=== PATIENT | female | born 1980 | race Hispanic/Latino ===

== ENCOUNTER 2022-03-28 16:08 | Emergency (ER) | payer OTHER, SELFPAY ==
[2022-03-28 16:20] VITALS: BP 146/82; PULSE 96; RESP 16; TEMP 36.7; O2SAT 100
--- NOTE | 2022-03-28 16:33 | ED.URI ---
HPI - URI/Sore Throat General Chief Complaint: Upper Respiratory Infection Stated Complaint: sorethroat Time Seen by Provider: 03/28/22 16:33 Source: patient Mode of arrival: ambulatory Limitations: no limitations History of Present Illness HPI Narrative: Katerina Trejo is a 42 yo female with a PMH of Sjorgen's syndrome,and who is in the who comes with complaints of a dry throat x2 days. No fever-his eyes are watering but feels really dry in her throat and nose; not feeling well Related Data Home Medications Medication Instructions Recorded Confirmed cholecalciferol (vitamin D3) 1,000 unit PO DAILY 03/28/22 03/28/22 [Vitamin D3] hydroxychloroquine [Plaquenil] 200 mg PO DAILY 03/28/22 03/28/22 Allergies Allergy/AdvReac Type Severity Reaction Status Date / Time No Known Allergies Allergy Verified 03/28/22 16:29 Review of Systems Review of Systems: CONSTITUTIONAL: Denies fever, chills, sweats. EYES: Denies visual changes, redness, discharge. ENT: Denies rhinorrhea, congestion, sore throat, otalgia. CARDIOVASCULAR: Denies chest pain, palpitations, edema. RESPIRATORY: Denies dyspnea, wheezing, cough GASTROINTESTINAL: Denies abdominal pain, nausea, vomiting, diarrhea. GENITOURINARY: Denies dysuria, hematuria, abnormal discharge SKIN: Denies rash or itching. NEUROLOGIC: Denies numbness, or focal weakness. PSYCHIATRIC: Denies anxiety or depression. Dry eyes and mouth more extreme than usual and not feeling well PMFSH Past Medical History Medical History Sjogrens syndrome Social History Social History (Updated 03/28/22 @ 16:50 by Domenica Hernandez CNP) Smoking status: Never smoker Alcohol intake: never Comments At time of signature, I agree with nursing past medical, surgical, social and family history. There is no relevant family history pertinent to the presenting complaint. Exam Narrative: GENERAL: This is a well-nourished, well-developed patient, in mild distress. HEAD: normocephalic, atraumatic. EYES:. Sclera clear/white. Vision is grossly intact. Eyes appear watery EARS: External ears normal, auditory canals clear and without drainage, TMs normal without perforation. Hearing grossly intact. NOSE: External nose normal without nasal discharge, nares without redness, no rhinorrhea. THROAT: Mucous membranes moist, posterior pharynx mild erythema NECK: Neck supple, non-tender CARDIOVASCULAR: Regular rate and rhythm without murmurs, gallops, or rubs. RESPIRATORY: Clear to auscultation. Breath sounds equal bilaterally. No wheezes, rales, or rhonchi. GASTROINTESTINAL: Abdomen soft, non-tender, SKIN: warm, intact with no suspicious lesions or rash, good texture and turgor. NEURO: awake, alert, and oriented to person, place and time. There were no obvious focal neurologic abnormalities. Steady gait EXTREMITIES: Normal range of motion. BACK: Nontender without deformity Course Course Emergency Course: Patient comes with complaints of runny nose and eyes with an context of Sojourn's syndrome strep test is negative COVID test s negative Patient currently takes cepacol, is taking zyrtec,has only been on Plaquinil for 6 months; [facility] or with family development specialist Level of Care: Express Care Visit Vital Signs Vital signs: Vital Signs Temperature 98.1 F 03/28/22 16:20 Pulse Rate 96 03/28/22 16:20 Respiratory Rate 16 03/28/22 16:20 Blood Pressure 146/82 H 03/28/22 16:20 Pulse Oximetry 100 03/28/22 16:20 Temperature 98.1 F 03/28/22 16:20 Pulse Rate 96 03/28/22 16:20 Respiratory Rate 16 03/28/22 16:20 Blood Pressure 146/82 H 03/28/22 16:20 Pulse Oximetry 100 03/28/22 16:20 MDM - URI/Sore Throat Lab Data Labs: Strep Screen Presumptive Negative *(Reference Range: Negative)* Discharge Plan Discharge Clinical
== END 2022-03-28 17:04 | disposition home or self-care (01) ==
PROVIDERS: Emergency Provider Nurse Practitioner
DX: J30.2 Other seasonal allergic rhinitis (principal); Z20.822 Contact with and (suspected) exposure to COVID-19
CPT/HCPCS: 87081; 87426; 87880; 99203; C9803; G0463

== ENCOUNTER 2022-04-11 14:52 | Emergency (ER) | payer OTHER, SELFPAY ==
--- NOTE | ~2022-04-11 | XR_ITS ---
XR knee LT min 4V 04/11/2022 15:44 INDICATION: Left knee pain PROCEDURE: 5 views left knee COMPARISON: No prior studies for comparison. FINDINGS: Fracture, dislocation or subluxation is not identified. No significant joint effusion. The soft tissues appear within normal limits. No foreign bodies are identified. IMPRESSION: 1: NO ACUTE BONE OR JOINT ABNORMALITY IDENTIFIED. Reviewed, dictated and finalized at location A.
[2022-04-11 15:11] VITALS: BP 124/69; PULSE 78; RESP 18; TEMP 36.2; O2SAT 99
--- NOTE | 2022-04-11 15:19 | ED.LOWEXIN ---
HPI - Extremity Injury (Lower) General Chief Complaint: Extremity Injury, Lower Stated Complaint: lt knee pain Time Seen by Provider: 04/11/22 15:19 Source: patient Mode of arrival: ambulatory Limitations: no limitations History of Present Illness HPI Narrative: Ms. Trejo is a 42-year-old female patient presenting to the clinic today with complaints of left knee pain x1 month She reports she has been doing a lot of running and doing squats for [employer]. She reports that she has had patellofemoral syndrome in the past however she feels as though her knee is making some popping/crunching noises. Has pain to the anterior knee. Denies any known injury. Related Data Home Medications Medication Instructions Recorded Confirmed cholecalciferol (vitamin D3) 25 1,000 unit PO DAILY 03/28/22 04/11/22 mcg (1,000 unit) tablet (Vitamin D3) hydroxychloroquine 200 mg tablet 200 mg PO DAILY 03/28/22 04/11/22 (Plaquenil) cetirizine 10 mg tablet (Zyrtec) 10 mg PO DAILY 04/11/22 04/11/22 Allergies Allergy/AdvReac Type Severity Reaction Status Date / Time No Known Allergies Allergy Verified 04/11/22 15:30 Review of Systems Review of Systems: Pertinent positives per HPI. Patient denies any fever, chills, rash, headache, visual changes, dizziness, cough, runny nose, sore throat, shortness of breath, chest pain, palpitations, nausea, vomiting, diarrhea, constipation, abdominal pain, or any urinary issues. PMFSH Past Medical History Medical History Sjogrens syndrome Social History Social History Smoking status: Never smoker Alcohol intake: never Exam Narrative: General: Well-developed, well nourished, in no apparent distress Head: Normocephalic, atraumatic. Cardio: Regular rate and rhythm, s1 and s2 normal, no murmur appreciated. Resp: Clear to auscultation bilaterally, no rhonchi, rales, wheezing or rubs. Musculoskeletal: No deformity, tender to palpation over the superior knee and the patella, mild crepitus felt with flexion and extension of the left knee, grossly normal range of motion, pain most with flexion of the left knee, tenderness noted with valgus and varus testing, negative anterior and posterior drawer test, muscle strength strong and equal, peripheral pulse strong, no edema, no cyanosis, normal gait and station Course Course Emergency Course: This electronic medical record was dictated using voice recognition software and may contain some grammatical errors. Level of Care: Express Care Visit Vital Signs Vital signs: Vital Signs Temperature 36.2 C L 04/11/22 15:11 Pulse Rate 78 04/11/22 15:11 Respiratory Rate 18 04/11/22 15:11 Blood Pressure 124/69 04/11/22 15:11 Pulse Oximetry 99 04/11/22 15:11 Oxygen Delivery Room Air 04/11/22 15:11 Temperature 36.2 C L 04/11/22 15:11 Pulse Rate 78 04/11/22 15:11 Respiratory Rate 18 04/11/22 15:11 Blood Pressure 124/69 04/11/22 15:11 Pulse Oximetry 99 04/11/22 15:11 Oxygen Delivery Room Air 04/11/22 15:11 Vital signs reviewed MDM - Extremity Injury (Lower) MDM Narrative Medical decision making narrative: At the time of visit patient is resting comfortably on the exam table. X-ray was performed and was negative for any fracture or malalignment of the left knee. 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 Imaging Data Attestation: I personally reviewed and interpreted this imaging study as follows: My impression: Left knee x-ray negative for any fracture or malalignment Radiologist's impression: [address] [id number] XRay Report Signed Patient: Katerina Trejo : 1980 MR#:
== END 2022-04-11 15:52 | disposition home or self-care (01) ==
PROVIDERS: Emergency Provider Nurse Practitioner Family
DX: M22.2X2 Patellofemoral disorders, left knee (principal); M35.00 Sjogren syndrome, unspecified
CPT/HCPCS: 73564; 99213; G0463

== ENCOUNTER 2023-08-04 17:54 | Emergency (ER) | payer OTHER, SELFPAY ==
[2023-08-04 18:07] VITALS: BP 130/82; PULSE 78; RESP 16; TEMP 36.6; O2SAT 100
--- NOTE | 2023-08-04 18:09 | ED.URI ---
HPI - URI/Sore Throat General Chief Complaint: Upper Respiratory Infection Stated Complaint: Sore Throat;Headache Time Seen by Provider: 08/04/23 18:09 Source: patient Mode of arrival: ambulatory Limitations: no limitations History of Present Illness HPI Narrative: 43-year-old female presents with complaint of sore throat swollen lymph nodes to neck for 3 days. Reports fatigue. Reports continued cough from COVID. States she had COVID 3 weeks ago. Reports that she has a lot of postnasal drainage that she cannot clear. Taking Flonase. Patient reports history of Sjogren's and normally has difficulty with secretions. States she takes a Zyrtec or Claritin it will dry her out too much. All systems reviewed and negative except as noted above. Related Data Home Medications Medication Instructions Recorded Confirmed cholecalciferol (vitamin D3) 25 1,000 unit PO DAILY 03/28/22 08/04/23 mcg (1,000 unit) tablet (Vitamin D3) hydroxychloroquine 200 mg tablet 200 mg PO DAILY 03/28/22 08/04/23 (Plaquenil) Allergies Allergy/AdvReac Type Severity Reaction Status Date / Time No Known Allergies Allergy Verified 08/04/23 18:05 Review of Systems Review of Systems: CONSTITUTIONAL: Denies fever, chills, or sweats. EYES: Denies visual changes, redness, or discharge. ENT: Denies rhinorrhea, congestion. Reports sore throat, postnasal drainage. Denies otalgia. CARDIOVASCULAR: Denies chest pain, palpitations, or edema. RESPIRATORY: Reports cough. Denies dyspnea. GASTROINTESTINAL: Denies abdominal pain, nausea, vomiting, or diarrhea. GENITOURINARY: Denies dysuria or hematuria. SKIN: Denies rash or itching. MUSCULOSKELETAL: Denies back pain, joint pain, or myalgia. NEUROLOGIC: Denies headache, numbness, or weakness. PSYCHIATRIC: Denies anxiety or depression. All other systems reviewed are negative, except as documented in HPI. [facility] Past Medical History Medical History Sjogrens syndrome Social History Social History Smoking status: Never smoker Alcohol intake: never Comments At time of signature, agree with nursing past medical, surgical, social and family history. There is no relevant family history pertinent to the presenting complaint. Exam Narrative: GENERAL: This is a well-nourished, well-developed patient, in no apparent distress. HEAD: normocephalic, atraumatic. EYES: PERRL. Sclera clear/white. Vision is grossly intact. EARS: External ears normal, auditory canals clear and without drainage, TMs normal without perforation. Hearing grossly intact. NOSE: External nose normal with no obvious nasal discharge, nares without redness, no rhinorrhea. THROAT: Mucous membranes moist, erythema to posterior pharynx. No swelling or exudates noted. NECK: Neck supple, tender with enlarged anterior cervical lymphadenopathy. No masses or thyromegaly. CARDIOVASCULAR: Regular rate and rhythm without murmurs, gallops, or rubs. RESPIRATORY: Clear to auscultation. Breath sounds equal bilaterally. No wheezes, rales, or rhonchi. SKIN: warm, Dry, intact with no suspicious lesions or rash, good texture and turgor. NEURO: awake, alert, and oriented to person, place and time. There were no obvious focal neurologic abnormalities. EXTREMITIES: No joint tenderness, effusion, or edema noted. Course Course Level of Care: Express Care Visit Vital Signs Vital signs: Vital Signs Temperature 36.6 C 08/04/23 18:07 Pulse Rate 78 08/04/23 18:07 Respiratory Rate 16 08/04/23 18:07 Blood Pressure 130/82 08/04/23 18:07 Pulse Oximetry 100 08/04/23 18:07 Temperature 36.6 C 08/04/23 18:07 Pulse Rate 78 08/04/23 18:07 Respiratory Rate 16 08/04/23 18:07 Blood Pressure 130/82 08/04/23 18:07 Pulse Oximetry 100 08/04/23 18:07 Reviewed MDM - URI/Sore Throat MDM Narrative Medi
== END 2023-08-04 18:20 | disposition home or self-care (01) ==
PROVIDERS: Emergency Provider Nurse Practitioner Family
DX: J02.9 Acute pharyngitis, unspecified (principal); R05.1 Acute cough; M35.00 Sjogren syndrome, unspecified
CPT/HCPCS: 99213; G0463

== ENCOUNTER 2024-11-05 17:18 | Emergency (ER) | payer OTHER, SELFPAY ==
[2024-11-05 17:44] VITALS: BP 137/92; PULSE 112; RESP 16; TEMP 37.3; O2SAT 100
[2024-11-05 18:40] LABS: EDCOVIDSCREEN Positive (Negative)
--- NOTE | 2024-11-05 18:41 | ED_ITS ---
HPI - URI/Sore Throat General Chief Complaint: Upper Respiratory Infection Stated Complaint: Cough/Congestion Time Seen by Provider: 11/05/24 18:36 Source: patient and RN notes reviewed Mode of arrival: ambulatory Limitations: no limitations History of Present Illness HPI Narrative: Patient presents today with a 3 day history of nasal congestion, postnasal drip, cough, chills, headache, body aches, mild shortness of breath. Denies fever. She has tried no [id number] treatment prior to arrival. Patient is on Plaquenil for Sjogren's Related Data Home Medications ?Medication ?Instructions ?Recorded ?Confirmed ?Last Taken ?Type cholecalciferol (vitamin D3) 25 1,000 unit PO DAILY 03/28/22 08/04/23 Unknown History mcg (1,000 unit) tablet (Vitamin D3) hydroxychloroquine 200 mg tablet 200 mg PO DAILY 03/28/22 08/04/23 Unknown History (Plaquenil) Allergies Allergy/AdvReac Type Severity Reaction Status Date / Time No Known Allergies Allergy Verified 11/05/24 17:56 Review of Systems Review of Systems: CONSTITUTIONAL: Denies fever, or sweats.+ chills, body aches EYES: Denies visual changes, redness, or discharge. ENT: Denies rhinorrhea, sore throat, or otalgia.+ congestion, postnasal drip CARDIOVASCULAR: Denies chest pain, palpitations, or edema. RESPIRATORY: + cough, mild shortness of breath GASTROINTESTINAL: Denies abdominal pain, nausea, vomiting, or diarrhea. GENITOURINARY: Denies dysuria or hematuria. SKIN: Denies rash, itching, or wounds. MUSCULOSKELETAL: Denies back pain, joint pain, or myalgia. NEUROLOGIC: Denies numbness, tingling, or weakness.+ headache PSYCH: Denies depression or anxiety. [facility] Past Medical History Medical History Sjogrens syndrome Social History Social History Smoking status: Never smoker Alcohol intake: never Comments At time of signature, I have reviewed and agree with nursing past medical, surgical, social and family history unless otherwise noted. Please see nursing chart for further information. There is no relevant family history pertinent to the presenting complaint Exam Narrative: GENERAL: Mildly ill-appearing, well-nourished, and in no acute distress. HEAD: Normocephalic, atraumatic. EYES: EOMI. No redness or drainage. Conjunctivae normal. ENT: Mucous membranes pink and moist. Nares congested. No rhinorrhea. TMs normal bilaterally. Throat normal. Uvula midline. NECK: Normal AROM. Supple. No lymphadenopathy. CHEST: No respiratory distress. Clear to auscultation. HEART: Regular rate and rhythm. No murmur appreciated. EXTREMITIES: Normal range of motion. No edema. SKIN: Warm, dry, no rash. Capillary refill normal. Normal skin turgor. NEURO: No focal deficits. Alert and oriented x3. Gait steady. PSYCH: Normal affect. No signs of depression or anxiety. Course Course Level of Care: Express Care Visit Vital Signs Vital signs: Vital Signs Temperature 99.2 F 11/05/24 17:44 Pulse Rate 112 H 11/05/24 17:44 Respiratory Rate 16 11/05/24 17:44 Blood Pressure 137/92 H 11/05/24 17:44 Pulse Oximetry 100 11/05/24 17:44 Temperature 99.2 F 11/05/24 17:44 Pulse Rate 112 H 11/05/24 17:44 Respiratory Rate 16 11/05/24 17:44 Blood Pressure 137/92 H 11/05/24 17:44 Pulse Oximetry 100 11/05/24 17:44 Reviewed MDM - URI/Sore Throat MDM Narrative Medical decision making narrative: COVID-19 positive. Prescription for Paxlovid sent to pharmacy. Anticipatory guidance given. ED precautions given. Differential Diagnosis Differential diagnosis: Likely upper respiratory infection, viral infection, influenza and other (COVID) Lab Data Attestation: I reviewed the patient's lab results. Labs: Lab Results 11/05/24 Range/Units 18:38 POC SARS CoV-2 Ag Positive (Negative) Critical Care Time Critical Care Time Critical Care Time: No Discharge Plan Discharge Clinical Impression: COVID-19 Patient Disposition: Home, Self-Care Condition: Stable Instructions: COVID-19 (Coronavirus Disease 2019) (ED) Additional Instructions: You have tested positive for COVID-19. Please take the Paxlovid as prescribed. Take Tylenol or ibuprofen for pain or fever. Take Mucinex to help break up any chest congestion. Follow-up with your PCP in 1 week if symptoms are not improving. As discussed, please go to the ER if symptoms worsen to include new onset fever, shortness of breath, chest pain. Your blood pressure was elevated above 120/80 today at Urgent Care. This puts you above the threshold for follow up. Please schedule a followup visit with your personal physician as soon as possible, for further evaluation and treatment. Even blood pressure exceeding 120/80 may indicate pre-hypertension. Patient Language: Samoan Prescriptions: New Paxlovid 300 mg (150 mg x 2)-100 mg tablets,dose pack See Rx Instructions .ROUTE .COMPLEX Qty: 30 0RF Rx Instructions: take TWO 150 mg tablets of nirmatrelvir with ONE 100 mg tablet of ritonavir twice daily for 5 days No Action hydroxychloroquine [Plaquenil] 200 mg Tablet 200 mg PO DAILY cholecalciferol (vitamin D3) [Vitamin D3] 25 mcg (1,000 unit) tablet 1,000 unit PO DAILY amoxicillin 500 mg tablet 500 mg PO Q12H 10 Days Qty: 20 0RF methylprednisolone [Medrol (Christopher)] 4 mg tablets,dose pack See Rx Instructions PO .COMPLEX Qty: 21 0RF Rx Instructions: orally per package directions Follow-up/Referrals: PHYSICIAN,MANAGER EMERGENCY DEPARTMENT [Primary Care Provider] - Time of Disposition: 18:47
== END 2024-11-05 18:58 | disposition home or self-care (01) ==
PROVIDERS: Emergency Provider Nurse Practitioner
DX: U07.1 COVID-19 (principal); M35.00 Sjogren syndrome, unspecified
CPT/HCPCS: 87426; 99213; G0463

== ENCOUNTER 2025-08-27 07:55 | Outpatient (CLI) | payer OTHER, SELFPAY ==
--- NOTE | ~2025-08-27 | US_ITS ---
ULTRASOUND ABDOMEN LIMITED (RIGHT UPPER QUADRANT) Clinical History: R74.01 - Elevation of levels of liver transaminase levels Comparison: None Technique: Right upper quadrant sonography Findings: Liver: Normal size. Echogenic. No intrahepatic biliary ductal dilatation. Normal hepatopedal flow main portal vein. Common Duct: Normal caliber. 3 mm. Gallbladder: No stones. No wall thickening. No pericholecystic fluid. Pancreas: Unremarkable. IMPRESSION: 1. No acute findings. 2. Hepatic steatosis and/or hepatocellular disease. Reviewed, dictated and finalized at location R.
[2025-08-27 09:52] LABS: Iron 60 ug/dL (37-170)
[2025-08-27 10:08] LABS: Percent Iron Saturation 17 % (20-50)
[2025-08-27 10:33] LABS: Ferritin 29.20 ng/mL (6.24-137)
[2025-08-27 10:46] LABS: Hepatitis B Surface Antigen Negative (Negative)
[2025-08-27 11:03] LABS: Hepatitis B Surface Anti Res Negative
[2025-08-28 07:09] LABS: Hep B Core Ab, Total Negative (Negative)
== END 2025-08-27 07:56 | disposition home or self-care (01) ==
LOC: ANHIMG 07:58
PROVIDERS: PCP Nurse Practitioner Family; Visit Provider Nurse Practitioner Family
DX: K76.0 Fatty (change of) liver, not elsewhere classified (principal); K76.9 Liver disease, unspecified; R74.01 Elevation of levels of liver transaminase levels
CPT/HCPCS: 36415; 76705; 82728; 83540; 83550; 86704; 86706; 86803; 87340

== ENCOUNTER 2025-10-21 08:13 | Outpatient (CLI) | payer OTHER, SELFPAY ==
--- NOTE | ~2025-10-21 | US_ITS ---
US abdomen limited Indication: R10.32 - Left lower quadrant pain Comparison: None Technique: Gautam-scale and color Doppler images were obtained. Findings: Correlating with the patient's area of pain there is no abnormal mass or mass effect, no increased flow. IMPRESSION: Unremarkable exam Reviewed, dictated and finalized at location P. ER AND TACKER IMPRESSION: Unremarkable exam
--- OUTSIDE RECORDS SUMMARY | 2025-10-21 08:23 | XMS_ITS | Clinical Summary ---
Author Organization [facility] [address] [facility] Address [address] [place] [id number] Care Team Providers Care Legal Arbitrator Name Role Phone Lazaro Clay MD Unavailable [phone] Queenie Perez MD Primary Care Provid er Allergies Active Allergy Reactions Criticality Noted Date Comments Onion Hives Medium 10/27/2024 Medications cholecalciferol (VITAMIN D-3) 25 mcg (1,000 unit) tablet Take 1 tablet (1,000 Units total) by mouth daily Active carboxymethylce llulose (Refresh Tears) 0.5 % ophthalmic solution 1 Active fluticasone propionate (Flonase Allergy Relief) 50 mcg/actuation nasal spray Administer into affected nostril(s) 3 Active acetaminophen (TYLENOL) 325 mg tablet 1 Active polysaccharide iron complex (NU-IRON) 150 mg iron capsuleIndicati ons:Iron Deficiency Anemia Take 1 capsule (150 mg total) by mouth 2 (two) times a day 90 capsule 1 4 Active azelastine (ASTELIN) 137 mcg (0.1 %) nasal spray Administer into affected nostril(s) 4 Active sodium chloride (OCEAN) 0.65 % nasal spray Administer into affected nostril(s) 4 Active olopatadine (PAZEO) 0.7 % ophthalmic solution Administer into affected eye(s) as needed 4 Active Active Problems Problem Noted Date Diagnosed Date Hypersomnia 12/24/2023 Long-term use of hydroxychloroquine 10/19/2023 Assessment & Plan (07/03/2025 8:28 AM CDT): Maintain routine eye exams throughout the duration of taking hydroxychloroquine. Assessment & Plan (12/31/2024 8:30 AM SURFACING TECHNICIAN): Maintain routine eye exams throughout the duration of taking hydroxychloroquine. Assessment & Plan (06/16/2024 3:55 PM CDT): Maintain routine eye exams throughout the duration of taking hydroxychloroquine. Assessment & Plan (10/19/2023 4:32 PM SURFACING TECHNICIAN): Maintain routine eye exams throughout the duration of taking hydroxychloroquine. Left elbow pain 04/20/2023 Assessment & Plan (04/20/2023 3:31 PM CDT): Favor medial epicondylitis and muscle pain 2/2 recent change in exercise level. She is improving with rest. Also discussed consideration for possible TFCC tear and use of a Wrist Widget. For now she will continue conservative measures and monitor, she will call if symptoms persist. Early satiety 08/01/2021 Assessment & Plan (08/01/2021 2:56 PM CDT): Await GI evaluation later this week Sjogren's syndrome 08/05/2020 Overview (07/08/2025): Labs 08/05/2020 Unremarkable CBC, CMP, ESR, CRP, SPEP, UPEP, TINY, and immunoglobulins ASHLIE 1:1280 and +SSA UA with 1+ blood, 0-2 RBCs, few bacteria Negative Hepatitis B/C Xrays 10/22/2024 XR B hands - unremarkable Ultrasound 11/15/2023 US right hand/wrist: 1) Marked synovial thickening of the dorsal wrist with grade 2 power Doppler 2) Grade 1 power Doppler of the radial scaphoid joint 3) Mild synovial thickening of the 3rd and 4th MCPJ 4) Moderate synovial thickening of the 1st CMC joint US left hand 07/08/25: 1. Grade 1-2 effusion of the ulnar styloid 2. Possible erosion of the lunate without surrounding inflammatory signal 3. Moderate synovial thickening of the 3rd and 4th MCP joints 4. Mild synovial thickening of the 2nd and 3rd PIP joints 5. mild spurring of the 1st CMC joint Assessment & Plan (07/03/2025 8:28 AM CDT): Previously diagnosed with Sjogren's syndrome based upon dry mouth with ASHLIE 1:1280 and +SSA. Our workup revealed unremarkable serologies. Continue with conservative treatment including frequent sips of water, Biotene mouthwash, and sugar free sour candy. Pt should see the dentist regularly. Assessment & Plan (12/31/2024 8:30 AM SURFACING TECHNICIAN): Previously diagnosed with Sjogren's syndrome based upon dry mouth with ASHLIE 1:1280 and +SSA. Our workup revealed unremarkable serologies. Continue with conservative treatment including frequent sips of water, Biotene mouthwash, and sugar free sour candy. Pt should see the dentist regularly. Assessment & Plan (06/16/2024 3:54 PM CDT): Previously diagnosed with Sjogren's syndrome based upon dry mouth with ASHLIE 1:1280 and +SSA. Our workup revealed unremarkable serologies. Continue with conservative treatment including frequent sips of water, Biotene mouthwash, and sugar free sour candy. Pt should see the dentist regularly. Assessment & Plan (10/19/2023 4:31 PM SURFACING TECHNICIAN): Previously diagnosed with Sjogren's syndrome based upon dry mouth with ASHLIE 1:1280 and +SSA. Our workup revealed unremarkable serologies. Continue with conservative treatment including frequent sips of water, Biotene mouthwash, and sugar free sour candy. Pt should see the dentist regularly. Assessment & Plan (04/20/2023 3:32 PM CDT): Previously diagnosed with Sjogren's syndrome based upon dry mouth with ASHLIE 1:1280 and +SSA. Our workup revealed unremarkable serologies. Continue with conservative treatment including frequent sips of water, Biotene mouthwash, and sugar free sour candy. Pt should see the dentist regularly. Assessment & Plan (10/20/2022 10:01 AM SURFACING TECHNICIAN): Previously diagnosed with Sjogren's syndrome based upon dry mouth with ASHLIE 1:1280 and +SSA. Our workup revealed unremarkable serologies. Continue with conservative treatment including frequent sips of water, Biotene mouthwash, and sugar free sour candy. Pt should see the dentist regularly. Assessment & Plan (04/27/2022 12:07 PM CDT): Previously diagnosed with Sjogren's syndrome based upon dry mouth with ASHLIE 1:1280 and +SSA. Our workup revealed unremarkable serologies. Continue with conservative treatment including frequent sips of water, Biotene mouthwash, and sugar free sour candy. Pt should see the dentist regularly. Assessment & Plan (01/17/2022 8:43 AM SURFACING TECHNICIAN): Previously diagnosed with Sjogren's syndrome based upon dry mouth with ASHLIE 1:1280 and +SSA. Our workup revealed unremarkable serologies. Continue with conservative treatment including frequent sips of water, Biotene mouthwash, and sugar free sour candy. Pt should see the dentist regularly. Assessment & Plan (09/19/2021 10:44 AM CDT): Previously diagnosed with Sjogren's syndrome based upon dry mouth with ASHLIE 1:1280 and +SSA. Our workup revealed unremarkable serologies. Continue with conservative treatment including frequent sips of water, Biotene mouthwash, and sugar free sour candy. Pt should see the dentist regularly. Assessment & Plan (08/01/2021 2:56 PM CDT): Previously diagnosed with Sjogren's syndrome based upon dry mouth with ASHLIE 1:1280 and +SSA. Our workup revealed unremarkable serologies. Continue with conservative treatment including frequent sips of water, Biotene mouthwash, and sugar free sour candy. Pt should see the dentist regularly. Assessment & Plan (04/26/2021 12:34 PM CDT): Previously diagnosed with Sjogren's syndrome based upon dry mouth with ASHLIE 1:1280 and +SSA. She also reports fatigue and hair thinning but otherwise denies symptoms concerning for CTD. Our workup revealed unremarkable serologies. Today she reports several episodes of full body flushing with racing heart and more chronic early satiety; she is concerned that this is 2/2 Sjogren's. Discussed that there can be underlying neuropathic issues in the setting of Sjogren's, however at this point in time if these symptoms were 2/2 Sjogren's it would not change booth attendant. Given the relative infrequency of the flushing episodes, would not recommend daily treatment, though in the future could consider gabapentin. For the early satiety, certainly agree with GI evaluation. Otherwise her Sjogren's appears stable and she does not report current symptoms concerning for lupus or other CTD. She will continue with conservative treatment including frequent sips of water, Biotene mouthwash, and sugar free sour candy. Pt should see the dentist regularly. Recheck labs today as below. Plan to continue to monitor for development of additional CTD signs/symptoms, follow up in 3 months or sooner as needed. Assessment & Plan (10/26/2020 12:56 PM SURFACING TECHNICIAN): 40yoF previously diagnosed with Sjogren's syndrome based upon dry mouth with ASHLIE 1:1280 and +SSA presents to establish care. Overall has felt stable in the last year, managing sicca symptoms with conservative measures. She also reports fatigue and hair thinning but otherwise denies symptoms concerning for CTD. However, she does report daily gross hematuria, negative cystoscopy, see below. By exam she has no obvious synovitis. Our workup revealed unremarkable serologies. Overall her Sjogren's appears well managed and she does not report current symptoms concerning for lupus or other CTD. She will continue with conservative treatment including frequent sips of water, Biotene mouthwash, and sugar free sour candy. Pt shoulder see the dentist regularly. Otherwise will plan to continue to monitor for development of additional CTD signs/symptoms, follow up in 4-6 months or sooner as needed. Assessment & Plan (08/05/2020 12:22 PM CDT): 40yoF previously diagnosed with Sjogren's syndrome based upon dry mouth with ASHLIE 1:1280 and +SSA presents to establish care. Overall has felt stable in the last year, managing sicca symptoms with conservative measures. She also reports fatigue and hair thinning but otherwise denies symptoms concerning for CTD. However, she does report daily gross hematuria, negative cystoscopy, see below. By exam today she has tenderness of her cervical spine and L SI joint, but no obvious synovitis. She is also noted to have raised areas/thickening of the dark pigmented portions of the tattoo on her L upper arm of uncertain significance. Overall her Sjogren's appears well managed and she does not report current symptoms concerning for lupus or other CTD. She will continue with conservative treatment including frequent sips of water, Biotene mouthwash, and sugar free sour candy. Pt shoulder see the dentist regularly. Otherwise will plan to continue to monitor for development of additional CTD signs/symptoms, follow up in 3 months or sooner as needed. Gross hematuria 08/05/2020 Assessment & Plan (10/26/2020 12:55 PM SURFACING TECHNICIAN): Report of hafsa hematuria daily for the last year or more. Prior cystoscopy (in [place]) reportedly unremarkable and pt was instructed to monitor. Our UA showed 1+ blood but no significant RBCs, ?myoglobin. Recommend follow up with urology as planned. Assessment & Plan (08/05/2020 12:23 PM CDT): Report of hafsa hematuria daily for the last year or more. Prior cystoscopy (in [place]) reportedly unremarkable and pt was instructed to monitor. Will check additional labs as below and encouraged pt to establish with urologist locally for further evaluation. Polyarthralgia 08/05/2020 Assessment & Plan (07/03/2025 1:31 PM CDT): Low cdai. She reports increased hand pain and stiffness which is prolonged in the morning, this began sometime since HCQ was withdrawn 6 months ago. At this time recommend obtaining a repeat hand/wrist US to look for evidence of active inflammatory arthritis and will likely resume HCQ pending findings. Plan for follow up in 2-3 months or sooner as needed. Assessment & Plan (12/31/2024 10:30 AM SURFACING TECHNICIAN): Denies any joint pain/stiffness and she has no synovitis nor ttp on exam. She would like to try discontinuing hydroxychloroquine now which is certainly reasonable. Will monitor off treatment. Labs today. Follow up in 6 months or sooner as needed should joints flare. Assessment & Plan (06/17/2024 9:23 AM CDT): On hydroxychloroquine 200 mg once daily with reported benefit and she has no synovitis nor ttp on exam. Will continue hcq. Labs today. Follow up in 6 months or sooner as needed. Assessment & Plan (10/19/2023 4:31 PM SURFACING TECHNICIAN): On hydroxychloroquine 200 mg once daily which she previously noted benefit with, now feels that her hands have become more painful, swollen, and stiff. Discussed that we could reevaluate and she is interested in pursuing this, will obtain labs, hand xrays, and hand ultrasound as below. She will be called with results and recommendations. Assessment & Plan (04/20/2023 3:32 PM CDT): On hydroxychloroquine 200 mg once daily with improvement in symptoms, will continue. Maintain routine eye exams throughout the duration of taking hydroxychloroquine. Plan for follow up in 6 months or sooner as needed. Assessment & Plan (10/20/2022 1:25 PM SURFACING TECHNICIAN): On hydroxychloroquine 200 mg once daily with improvement in symptoms, will continue. Maintain routine eye exams throughout the duration of taking hydroxychloroquine. Plan for follow up in 6 months or sooner as needed. Assessment & Plan (04/27/2022 2:47 PM CDT): On hydroxychloroquine 200 mg once daily with improvement in symptoms, will continue. Maintain routine eye exams throughout the duration of taking hydroxychloroquine. 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 Assessment & Plan (01/17/2022 3:59 PM SURFACING TECHNICIAN): On hydroxychloroquine 200 mg once daily with improvement in symptoms, will continue. Maintain routine eye exams throughout the duration of taking hydroxychloroquine. 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 Plan for follow up in ~3 months before she is deployed. Assessment & Plan (09/19/2021 1:41 PM CDT): At last visit noted flare of joint pain and stiffness in the last 2 weeks which is worse in the morning for 2 hours. Discussed that her joint pain does have inflammatory characteristics and could be related to her underlying autoimmune disease, though there is no evidence of this by exam. As the symptoms were very bothersome and had been limiting her activity, discussed trial of hydroxychloroquine; now on 200 mg once daily x4-5 weeks with lessening side effects, she would like to continue, will allow more time for effect. Maintain routine eye exams throughout the duration of taking hydroxychloroquine. If no benefit with hydroxychloroquine, likely would not escalate to another dmard. Limit dose to 200 mg once daily based upon weight. Plan for follow up in 3-4 months to reassess or sooner as needed. Assessment & Plan (08/01/2021 2:55 PM CDT): Complains of flare of joint pain and stiffness in the last 2 weeks which is worse in the morning for 2 hours. No synovitis by exam and only 4 tender MTP joints. Discussed that her joint pain does have inflammatory characteristics and could be related to her underlying autoimmune disease, though there is no evidence of this by exam. As the symptoms are very bothersome and have been limiting her activity, discussed trial of hydroxychloroquine. Reviewed SE including but not limited to dizziness, photosensitivity, GI upset, and in rare cases, retinal toxicity. Patient instructed to have a baseline eye exam and routine exams throughout the duration of taking hydroxychloroquine. If no benefit with hydroxychloroquine, likely would not escalate to another dmard. Limit dose to 200 mg once daily based upon weight. Plan for follow up in 8 weeks to reassess. Assessment & Plan (08/05/2020 12:25 PM CDT): Pt reports mechanical sounding pain in her back (with known degenerative changes), knees, and wrists. Has had good response to Advil prn, uncertain whether this may be impacting her hematuria. May also consider use of Voltaren gel which has less than 6% systemic absorption. Family History Medical History Relation Name Comments Cancer Maternal Grandmother Heart disease Maternal Grandmother Relation Name Status Comments Maternal Grandmother Social History Tobacco Use Types Packs/Day Years Used Date Smoking Tobacco: Former Cigarettes S tarted: 10/2018 Smokeless Tobacco: Never Tobacco Cessation:Counseling Given: Not Answered Alcohol Use Standard Drinks/Week Comments Yes 0 (1 standard drink = 0.6 oz pur e alcohol) Personal Safety Answer Date Recorded Have you ever been in or are you currently in a harmful physical or emotional relationship or is someone making you feel afraid or unsafe? Denies 07/16/2023 Comments No Sex and Gender Information Value Date Recorded Sex Assigned at Not on file Legal Sex Female 4:20 PM CDT Gender Identity Not on file Sexual Orientation Not on file Last Filed Vital Signs Vital Sign Reading Time Taken Comments Blood Pressure 116/78 07/03/2025 9:02 AM CDT Pulse 84 07/03/2025 9:02 AM CDT Temperature 36.6 C (97.9 F) 10/27/2024 8:30 AM SURFACING TECHNICIAN Respiratory Rate 16 10/27/2024 8:30 AM SURFACING TECHNICIAN Oxygen Saturation 98% 07/03/2025 9:02 AM CDT Inhaled Oxygen Concentration - - Weight 65.3 kg (144 lb) 07/03/2025 9:02 AM CDT Height 152.4 cm (5') 07/03/2025 9:02 AM CDT Body Mass Index 28.12 07/03/2025 9:02 AM CDT Plan of Treatment Health Maintenance Due Date Last Done Comments Cervical Cancer Screening 1979 Colon Cancer Screening-Colonoscopy 1979 Depression Screening 1979 Regular Well Visit/Exam 18-64 1997 Breast Cancer Screening-Mammogram 08/31/2021 08/31/2020, 08/31/2020 Covid-19 Vaccine ( season) 2025 04/10/2022, 11/25/2021, 01/25/2021 Influenza Vaccine (#1) 2025 4, 10/16/2023, 09/22/2022, Additional history exists DTaP/Tdap/Td Vaccine (3 - Td or Tdap) 07/26/2032 07/26/2022, 06/12/2012, 01/02/2011, Additional history exists Hepatitis B Screening Completed 11/14/2004 , 06/11/2004, 05/11/2004 Hepatitis C Screening Completed 08/05/2020 HPV Vaccines Aged Out No longer eligi ble based on patient's age to complete this topic Pneumococcal vaccine <65 Aged Out No longer eligible based on patient's age to complete this topic Procedures Procedure Name Priority Date/Time Associated Diagnosis Comments HEPATITIS C ANTIBODY Routine 08/05/2020 10:07 AM CDT Need for hepatitis C screening test from Last 3 Months or Most Recently Relevant to Health Maintenance Results * Hepatitis C antibody (08/05/2020 10:07 AM CDT) Hep C Ab NON-REACTI VE NON-REACT MATTEO [facility] SIGNAL TO CUT-OFF 0.02 <1.00 [facility] Comment: HCV antibody was non-reactive. There is no laboratory evidence of HCV infection. In most cases, no further action is required. However, if recent HCV exposure is suspected, a test for HCV RNA (test code 04366) is suggested. For additional information please refer to http://education.Sympoz/faq/KAU93b6 (This link is being provided for informational/ educational purposes only.) Blood specimen (specimen) 08/05/2020 10:07 AM CDT 08/05/2020 10:08 AM CDT us Lazaro Clay MD LAB MICROBIOLOGY - GENERAL ORD ERABLES Final Result [facility] [id number] [place] [id number] from Last 3 Months or Most Recently Relevant to Health Maintenance Insurance Care Teams Legal Arbitrator Relationship Specialty Start Date End Date Queenie Perez MD [address] [facility] [[email or web address] [address] [place] [address] PCP - General Family Medicine 08/20/24 Lazaro Clay MD [address] [place] [address] Referring Physician Family Medicine 07/27/20
--- OUTSIDE RECORDS SUMMARY | 2025-10-21 08:23 | XMS_ITS | Clinical Summary ---
Author Organization [facility] Address [facility] [place] [address] Care Team Providers Care Radiagraph Operator Name Role Phone Fabian Comer Primary Care Provider [phone] Allergies No known active allergies Medications vitamin D3, cholecalcifero l, 1000 UNIT Tab tablet Take 1 tablet by mouth daily. Active hydroxychloroq uine 200 MG tablet Take 200 mg by mouth daily. 2 Active acetaminophen 325 MG tablet 1 Active REFRESH TEARS 0.5 % Solution ophthalmic solution 1 Active loratadine (CLARITIN) 10 MG tablet daily. Active omeprazole 20 MG capsule 1 Active CLINPRO 5000 1.1 % Paste see administration instructions. 3 Active metoprolol tartrate (LOPRESSOR) 50 MG tablet Take 1 tablet (50 mg) 2 hourS prior to your procedure on 04/23/23. 1 tablet 3 Active ivabradine (CORLANOR) 7.5 MG tablet Take 2 tablets (15 mg) 2 hours prior to your procedure on 04/23/23. 2 tablet 3 Active Active Problems Problem Noted Date Diagnosed Date Essential hypertension Family History Medical History Relation Comments No Known Problems Father Breast Cancer Maternal Aunt age unknown Heart Attack Maternal Grandfather Stroke Maternal Grandfather Heart Attack Maternal Grandmother No Known Problems Mother No Known Problems Paternal Grandfather No Known Problems Paternal Grandmother Relation Status Comments Brother Alive Father Alive Maternal Aunt Maternal Grandfather (Age 62) Maternal Grandmother (Age 78) Mother Alive Paternal Grandfather Paternal Grandmother Sister Alive Social History Tobacco Use Types Packs/Day Years Used Date Smoking Tobacco: Former Cigarettes Q uit: 2018 Smokeless Tobacco: Never Alcohol Use Standard Drinks/Week Comments Yes 0 (1 standard drink = 0.6 oz pur e alcohol) AUDIT-C Answer Date Recorded Q1: How often do you have a drink containing alc ohol? 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 Respiratory Rate 20 04/23/2023 11:40 AM CDT Oxygen Saturation 99% 04/23/2023 11:40 AM CDT Inhaled Oxygen Concentration - - Weight 56.7 kg (125 lb) 04/23/2023 11:30 AM CDT Height 152.4 cm (5') 04/23/2023 11:30 AM CDT Body Mass Index 24.41 04/23/2023 11:30 AM CDT Plan of Treatment Health Maintenance Due Date Last Done Comments Cervical Cancer Screening Pa p Smear (Age 30 to 64) Every 3 Years 1979 Colorectal Cancer Screening Colonoscopy (10 Years) 1979 Annual Physical 1982 Hepatitis C 1997 DTaP, Tdap and Td Vaccines ( 1 - Tdap) 1998 Hepatitis B Vaccines (1 of 3 - 19+ 3-dose series) 1998 Cervical Cancer Screening Pa p with HPV Testing (Age 30 to 64) Every 5 Years 2009 Cervical Cancer Screening with HPV 2009 Mammogram Screening 08/31/2022 08/31/2020 COVID-19 Vaccine (2 - 2024-2 6 season) 2025 01/25/2021 Influenza Adult (#1) 2025 Hepatitis A Vaccines Aged Out No long er eligible based on patient's age to complete this topic Meningococcal B Vaccine Aged Out No l onger eligible based on patient's age to complete this topic Meningococcal Vaccine Aged Out No pavan ally eligible based on patient's age to complete this topic Pneumococcal Vaccine: Pediat rics (0 to 5 Years) and At-Risk Patients (6 to 49 Years) Aged Out No longer eligi ble based on patient's age to complete this topic RSV Immunizations Under 20 Months Aged Out No longer eligible based on patient's age to complete this topic Procedures Procedure Name Priority Date/Time Associated Diagnosis Comments MG DIAG W XENA BILAT DIGI Routine 08/31/2020 8:19 AM CDT Mastodynia from Last 3 Months or Most Recently Relevant to Health Maintenance Results * MG DIAG W XENA BILAT DIGI (08/31/2020 8:19 AM CDT) Anatomical Region Laterality Modality Breast Bilateral Mammography 08/31/2020 9:09 AM CDT Impressions 08/31/2020 9:16 AM CDT IMPRESSION: 1. Moderately dense breasts. No mammographic evidence of malignancy. 2. No sonographically suspicious abnormality identified at the site of concern on the left. 3. Follow-up as described. Recommendation: 1: Routine screening mammogram Bilateral in 1 Year Overall assessment: ACR BI-RADS Category 2 - Benign. Return for Routine Follow-Up: Yes Narrative 08/31/2020 9:16 AM CDT Examination: Bilateral digital diagnostic mammogram with CAD. [id number] Clinical history: Lump with pain near the 10:00 position on the left for six months. Baseline for screening on the right. Comparison: None. Technique: Bilateral digital mammograms including spot compression imaging on the left.. The exam was interpreted with the use of a computer-aided detection (CAD) system. Additional 3-D Tomosynthesis images were acquired. Tissue density: The breast tissue is heterogeneously dense. Findings: The breasts demonstrate mixed fat and moderately dense fibroglandular tissue. Benign-appearing calcification noted. The right breast is otherwise unremarkable. On the left, a marker was placed at the site of concern indicated by the patient, lying near the 10:00 position projecting approximately 3 cm deep to the nipple on the true lateral view. No discrete underlying mammographic abnormality at this site is identified, including under spot compression. The left breast is otherwise unremarkable. Due to the density of the local tissue background, it was elected to perform ultrasound. Examination: Left breast ultrasound. Technique: Grayscale images. Findings: Evaluation at the indicated site of concern, lying in the 11:00 position 4 cm from the nipple, fails to demonstrate any discrete solid or cystic mass. There are scattered fibrocystic changes against an otherwise bland appearing tissue background concordant with the degree of mammographic density. No sonographically suspicious abnormality is identified. Physical exam surveillance is advised with any further evaluation at this point guided on that basis. From a mammographic standpoint, routine follow-up in one year would seem adequate. These findings were discussed with the patient. us Herber Guaman MD MAMMO Final Resu lt from Last 3 Months or Most Recently Relevant to Health Maintenance Insurance [employer] [address] [facility] Care Teams Radiagraph Operator Relationship Specialty Start Date End Date Fabian Comer PA [address] [place] [address] PCP - General PHYSICIAN ELECTRICAL MAINTENANCE MECHANIC 08/13/20
== END 2025-10-21 08:14 | disposition home or self-care (01) ==
PROVIDERS: PCP Nurse Practitioner Family; Visit Provider Nurse Practitioner Family
DX: R19.04 Left lower quadrant abdominal swelling, mass and lump (principal); R10.32 Left lower quadrant pain
CPT/HCPCS: 76705